=== PATIENT | male | born 1945 | race Caucasian/White ===

== ENCOUNTER 2018-09-04 08:19 | Inpatient (IN) | payer MEDICARE ==
[~2018-09-04] VITALS: Ht 167.6 cm; Wt 104.6 kg
[~2018-09-04 08:19] MED LIST: BUPIVACAINE/PF-EPI 0.5% 1:200K ONE; CEFAZOLIN 1,000 MG ONE; FENTANYL PF 250 MCG/5ML ONE; GLYCOPYRROLATE 0.2MG/1ML, 5ML ONE; LIDOCAINE 1%-EPI 1:100K, 30ML ONE; MIDAZOLAM 1 MG/ML, 2ML ONE; NEOSTIGMINE 1 MG/ML, 10ML ONE; PROPOFOL 10 MG/ML, 20ML ONE; ROCURONIUM 10MG/ML,5ML ONE
[2018-09-04 08:51] VITALS: BP 140/84
[2018-09-04] MEDS ORDERED: ASPI-496 PO (08:57)
[2018-09-04] MEDS ORDERED: LOSA25TA6 PO (08:57)
[2018-09-04] MEDS ORDERED: HYDR12.517 PO (08:57)
[2018-09-04] MEDS ORDERED: ROSU20TA PO (08:57)
[2018-09-04] MEDS ORDERED: METO-95 PO (08:57)
[2018-09-04] MEDS ORDERED: ACETAMINOPHEN 500 MG TABLET PO ONE (09:00)
[2018-09-04] MEDS ORDERED: LACTATED RINGERS 1,000 ML IV SCH (09:00)
[2018-09-04] MEDS ORDERED: GABAPENTIN 300 MG CAPSULE PO ONE (09:00)
[2018-09-04] MEDS ORDERED: BUPIVACAINE 0.25% ONE (09:47)
[2018-09-04] MEDS ORDERED: methylPREDNISolone*ACETATE* 80 MG/ML ONE (09:48)
[2018-09-04] MEDS ORDERED: PROMETHAZINE 25 MG/ML, 1ML IM PRN ×2 (10:00)
[2018-09-04] MEDS ORDERED: hydrALAzine 20 MG/ML, 1ML IV PRN (10:00)
[2018-09-04] MEDS ORDERED: ONDANSETRON ODT 8 MG PO PRN (10:00)
[2018-09-04] MEDS ORDERED: MEPERIDINE/PF 25MG/0.5ML IVPush PRN (10:00)
[2018-09-04] MEDS ORDERED: FENTANYL PF 100 MCG/2ML IV PRN (10:00)
[2018-09-04] MEDS ORDERED: HYDROcodone/APAP 7.5-325MG/15ML UDC PO PRN (10:00)
[2018-09-04] MEDS ORDERED: ONDANSETRON 2MG/ML, 2ML IV PRN (10:00)
[2018-09-04] MEDS ORDERED: PROMETHAZINE 25 MG/ML, 1ML IV PRN (10:00)
[2018-09-04] MEDS ORDERED: LABETALOL 5MG/ML, 20ML IV PRN (10:00)
[2018-09-04] MEDS ORDERED: PROMETHAZINE 12.5 MG SUPP PR PRN (10:00)
[2018-09-04] MEDS ORDERED: PROMETHAZINE 25 MG SUPP PR PRN (10:00)
[2018-09-04] MEDS ORDERED: OXYcodone 5 MG/5 ML ORAL.SOL UDC PO PRN (10:00)
[2018-09-04] MEDS ORDERED: PHENYLEPHRINE 10 MG/ML ONE (10:05)
[2018-09-04] MEDS ORDERED: EPINEPHRINE TOPICAL SOLN 1 MG/ML, 30ML ONE (10:58)
[2018-09-04 14:15] VITALS: BP 159/93
[2018-09-04] MEDS ORDERED: HYDR-3245 PO (14:42)
[2018-09-04] MEDS ORDERED: ATORVASTATIN 40 MG TABLET PO SCH (21:00)
[2018-09-05] MEDS ORDERED: LOSARTAN 25MG TABLET PO SCH (09:00)
[2018-09-05] MEDS ORDERED: ASPIRIN 81 MG TABLET EC PO SCH (09:00)
[2018-09-05] MEDS ORDERED: METOPROLOL SUCCINATE 100 MG TAB.ER.24H PO SCH (09:00)
[2018-09-05] MEDS ORDERED: HYDROCHLOROTHIAZIDE 12.5 MG CAPSULE PO SCH (09:00)
== END 2018-09-04 16:46 | disposition home or self-care (01) | DRG 502 ==
LOC: ORIP 08:19 → 4NOR 14:10
PROVIDERS: ADMIT Orthopaedic Surgery; ATTEND Orthopaedic Surgery
PROC: 0RHJ44Z Insertion of Internal Fixation Device into Right Shoulder Joint, Percutaneous Endoscopic Approach (ICD-10-PCS; 2018-09-04)
PROC: 0LB14ZZ Excision of Right Shoulder Tendon, Percutaneous Endoscopic Approach (ICD-10-PCS; 2018-09-04)
PROC: 3E0T3BZ Introduction of Anesthetic Agent into Peripheral Nerves and Plexi, Percutaneous Approach (ICD-10-PCS; 2018-09-04)
PROC: 0LS34ZZ Reposition Right Upper Arm Tendon, Percutaneous Endoscopic Approach (ICD-10-PCS; principal; 2018-09-04 10:45)
DX: M75.121 Complete rotator cuff tear or rupture of right shoulder, not specified as traumatic (principal); M65.9 Synovitis and tenosynovitis, unspecified; M19.019 Primary osteoarthritis, unspecified shoulder; G47.33 Obstructive sleep apnea (adult) (pediatric); E78.5 Hyperlipidemia, unspecified; I10 Essential (primary) hypertension; Z88.0 Allergy status to penicillin; Z79.82 Long term (current) use of aspirin
CPT/HCPCS: G0378; J0690; J2250; J2704; J2710; J3010; J3490; C1713; J1040; J2370; J7120